=== PATIENT | female | born 2005 | race Caucasian/White ===

== ENCOUNTER 2025-07-10 14:16 | Emergency (ER) | payer BC ==
[~2025-07-10 14:16] MED LIST: Iopamidol-370 76% 500 ML MDV (1 ML CHARGE) ONE
[2025-07-10] MEDS ORDERED: Acetaminophen 500 MG TAB ONE (14:58)
[2025-07-10] MEDS ORDERED: Ibuprofen 800 MG TAB ONE (14:59)
[2025-07-10 19:02] LABS: #Basophils Less than 0.03 10x3/uL (0.0-0.2); #Eosinophils Less than 0.03 10x3/uL (0.0-0.7); #Monocytes 0.62 10x3/uL (0.11-0.59); #Neutrophils 4.20 10x3/uL (1.40-6.50); %Basophils 0.0 % (0.0-1.0); %Eosinophils 0.0 % (0.0-10.0); %Lymphocytes 15.8 % (28.0-48.0); %Monocytes 10.8 % (0.0-4.0); %Neutrophils 73.1 % (31.0-61.0); Hematocrit 32.4 % (36.0-47.0); Hemoglobin 10.7 g/dL (12.0-16.0); Mean Corpuscular Hemoglobin 30.6 pg (25.0-35.0); Mean Corpuscular Volume 92.6 fL (78.0-98.0); Platelet Count 139 10x3/uL (130-400); Red Blood Cell (RBC) Count 3.50 mill/uL (4.00-5.20); White Blood Cell (WBC) Count 5.75 10x3/uL (4.8-10.8)
[2025-07-10 19:07] LABS: BHCG - Serum Negative (NEGATIVE); Pregs Control Background? CLEAR/WHITE (CLR/WHITE); Pregs Control Bar Appear? YES (CONTROL BAR)
[2025-07-10 19:14] LABS: ALT (SGPT) 12 U/L (Less than 34); AST (SGOT) 19 U/L (11-34); Albumin 3.4 g/dL (3.1-4.5); Alkaline Phosphatase 44 U/L (40-100); Anion Gap 13 mmol/L (10-20); BUN (Urea Nitrogen) 6 mg/dL (7.0-18.7); Bilirubin, Total 0.4 mg/dL (0.3-1.2); Calc. Creatinine Clearance 0 mL/min (70-130); Calcium 7.8 mg/dL (7.8-10.44); Carbon Dioxide 18 mmol/L (22-29); Chloride 109 mmol/L (98-107); Globulin 2.5 g/dL (2.4-3.5); Glucose 109 mg/dL (70-105); Potassium 3.2 mmol/L (3.5-5.1); Sodium 137 mmol/L (136-145)
== END 2025-07-10 20:52 | disposition home or self-care (01) ==
LOC: ERS 14:16
DX: J11.1 Influenza due to unidentified influenza virus with other respiratory manifestations (principal); J18.9 Pneumonia, unspecified organism
CPT/HCPCS: 71045; 71275; 80053; 83605; 84703; 85025; 93005; J7620; Q9967